=== PATIENT | female | born 1990 | race American Indian/Alaskan Native ===

== ENCOUNTER 2020-06-26 10:05 | Inpatient (IN) | payer OTHER ==
[~2020-06-26] VITALS: Ht 172.7 cm; Wt 122.5 kg
--- NOTE | 2020-06-26 14:52 | PR ---
[facility] [address] [place], [place] [address] Signed Progress Notes IP Datetime Report Generated by CPN: 06/26/2020 14:51 PROGRESS NOTES: [id number] Impression: Normal Progression of Labor; Reassuring Heart Rate Procedures: Epidural Placement Plan: Continue Present Management Informed Consent Obtain: Vaginal Delivery; Risks, Benefits and Alternatives Discussed VITAL SIGNS: [id number] Vital Signs: Reviewed; Within Normal Limits EXAM: [id number] Dilatation: 7.0 Effacement: 80 Station: -2 Contractions: q4-5 min MEMBRANES: [id number] Pooling: Positive Nitrazine: Positive Comments: Still feeling abdominal pressure after epidural. Contractions increased in frequency and intensity. Continue expectant labor mgmt, epidural mgmt per anesthesia recommendations. FETUS A: [id number] FHR Baseline: 145 Variability: Moderate 6-25bpm Accelerations: 15X15 Decelerations: None FHR Category: Category I Presentation: Vertex Comments on Fetus A: no evidence of acidosis FETUS B: [id number] Signing Physician: Karolina Langley DO Copies: ~ *Electronically Signed* 06/26/20 1454 KAROLINA LANGLEY DO PATIENT NAME: KEHINDE PHILLIPS PROGRESS NOTE DATE OF : 89 PHYSICIAN: KAROLINA LANGLEY #: [id number] REPORT IS CONFIDENTIAL AND NOT TO BE RELEASED WITHOUT AUTHORIZATION
--- NOTE | 2020-06-26 15:31 | PR ---
[facility] [address] [facility] [place], [place] [address] Signed Progress Notes IP Datetime Report Generated by CPN: 06/26/2020 15:31 PROGRESS NOTES: [id number] Impression: Normal Progression of Labor Procedures: Epidural Placement Plan: Continue Present Management Informed Consent Obtain: Vaginal Delivery VITAL SIGNS: [id number] Vital Signs: Reviewed; Within Normal Limits EXAM: [id number] Dilatation: 8.0 Effacement: 80 Station: -2 Contractions: q4-5 min MEMBRANES: [id number] Pooling: Positive Nitrazine: Positive Membranes Status: Ruptured Comments: Feeling pressure with contractions, more urge to push Continue expectant mgmt, anticipate FETUS A: [id number] FHR Baseline: 145 Variability: Moderate 6-25bpm Accelerations: 15X15 Decelerations: None FHR Category: Category I Presentation: Vertex Comments on Fetus A: no evidence of acidosis FETUS B: [id number] Signing Physician: Karolina Langley DO Copies: ~ *Electronically Signed* 06/26/20 1531 KAROLINA LANGLEY DO PATIENT NAME: KEHINDE PHILLIPS PROGRESS NOTE DATE OF : 89 PHYSICIAN: KAROLINA LANGLEY DO RPT #: [id number] REPORT IS CONFIDENTIAL AND NOT TO BE RELEASED WITHOUT AUTHORIZATION
--- NOTE | 2020-06-27 10:49 | PR ---
[facility] [address] [facility] [place], [place] [address] Signed PP Progress Notes Datetime Report Generated by CPN: 06/27/2020 10:49 SUBJECTIVE: [id number] Pain: Within Normal Limits Nausea/Vomiting: Denies Flatus: Yes Bowel Movement: No Vital Signs: [id number] Vital Signs: Reviewed; Within Normal Limits EXAM: Ongoing Cardiovascular: Normal Respiratory: Normal Abdomen/Uterus: Normal Lochia: Normal Vulva/Perineum: Normal Breasts: Normal CVA Tenderness: Normal Extremities: Normal Progress: Normal Exam Comments: Fundus firm below umbilicus Trace lower extremity edema, negative Kassy's bilaterally IMPRESSION/PLAN/PROCEDURES: [id number] Impression: Normal Progression Plan: Discharge Procedures: None Progress Notes: 30 yo [id number] PPD#1 s/p -doing well -ambulating, voiding, tolerating regular diet -lochia light, QBL 700mL at time of delivery, hgb 8.9 this am - well -uncertain what she would like for contraception -hoping to go home tonight at 24h after delivery Signing Physician: Karolina Langley DO Copies: ~ *Electronically Signed* 06/27/20 1049 KAROLINA LANGLEY DO PATIENT NAME: KEHINDE PHILLIPS PROGRESS NOTE DATE OF : 92 PHYSICIAN: KAROLINA LANGLEY DO RPT #: [id number] REPORT IS CONFIDENTIAL AND NOT TO BE RELEASED WITHOUT AUTHORIZATION
== END 2020-06-27 18:25 | disposition home or self-care (01) | DRG 807 ==
LOC: FBCO 10:05 → FBC 11:30
PROVIDERS: ADMIT Obstetrics & Gynecology; ATTEND Obstetrics & Gynecology
PROC: 10E0XZZ Delivery of Products of Conception, External Approach (ICD-10-PCS; principal; 2020-06-26)
PROC: 00HU33Z Insertion of Infusion Device into Spinal Canal, Percutaneous Approach (ICD-10-PCS; 2020-06-26)
PROC: 3E0R3BZ Introduction of Anesthetic Agent into Spinal Canal, Percutaneous Approach (ICD-10-PCS; 2020-06-26)
PROC: 0UQMXZZ Repair Vulva, External Approach (ICD-10-PCS; 2020-06-26)
DX: O42.92 Full-term premature rupture of membranes, unspecified as to length of time between rupture and onset of labor (principal); Z37.0 Single live birth; Z3A.40 40 weeks gestation of pregnancy; O69.81X0 Labor and delivery complicated by cord around neck, without compression, not applicable or unspecified; O99.344 Other mental disorders complicating childbirth; F31.9 Bipolar disorder, unspecified; O99.214 Obesity complicating childbirth; E66.9 Obesity, unspecified; O71.82 Other specified trauma to perineum and vulva; O99.334 Smoking (tobacco) complicating childbirth; F17.290 Nicotine dependence, other tobacco product, uncomplicated; Z79.899 Other long term (current) drug therapy
CPT/HCPCS: 01960; 36415; 59025; 84112; 85027; 99212; J2001; J2590; J2795; J7121